=== PATIENT | female | born 1995 | race Caucasian/White ===

== ENCOUNTER 2017-03-28 21:11 | Emergency (ER) | payer OTHER ==
[2017-03-28 21:27] VITALS: BP 132/82; PULSE 86; RESP 18; TEMP 98.7
[2017-03-28] MEDS ORDERED: IBUPROFEN 800 MG TAB PO STA (21:31)
--- NOTE | 2017-03-28 21:45 | ED ---
Lower Extremity Injury HPI - General Chief Complaint: Extremity Injury, Lower Stated Complaint: foot injury Time Seen by Provider: 03/28/17 21:26 Source: patient Mode of arrival: wheelchair Limitations: no limitations - History of Present Illness Initial Comments: Patient is a 21-year-old female presenting to the emergency department with complaints of right ankle pain. Onset of injury approximately one hour prior to her arrival. Patient states she was climbing after her daughter up on a bouncy castle when she hyperextended her right foot and heard a snap. Patient states she was unable to ambulate at the scene of injury and is unable to ambulate in the emergency department. Patient is currently describing pain as sharp, rated 8 out of 10, exacerbated with movement, relieved with rest. Patient denies previous injury, trauma, or surgery to right lower extremity. No treatment prior to arrival. - Related Data Home Medications Medication Instructions Recorded Confirmed No Known Home Medications [No 03/28/17 03/28/17 Known Home Medications] Allergies Allergy/AdvReac Type Severity Reaction Status Date / Time No Known Allergies Allergy Verified 03/28/17 22:01 Review of Systems ROS Statement: Those systems with pertinent positive or pertinent negative responses have been documented in the HPI. ROS Other: All systems not noted in ROS Statement are negative. Past Medical History Past Medical History: No Reported History Additional Past Medical History / Comment(s): (L) ankle fx History of Any Multi-Drug Resistant Organisms: None Reported Past Surgical History: No Surgical Hx Reported Additional Past Surgical History / Comment(s): (L) ankle Past Psychological History: No Psychological Hx Reported Smoking Status: Never smoker Past Alcohol Use History: None Reported Past Drug Use History: None Reported General Exam Limitations: no limitations Head exam: Present: atraumatic, normocephalic, normal inspection Eye exam: Present: normal appearance ENT exam: Present: normal exam, mucous membranes moist, normal external ear exam Neck exam: Present: normal inspection, full ROM. Absent: tenderness, meningismus, lymphadenopathy Respiratory exam: Present: normal lung sounds bilaterally. Absent: respiratory distress, wheezes, rales, rhonchi Cardiovascular Exam: Present: regular rate, normal rhythm, normal heart sounds, systolic murmur GI/Abdominal exam: Present: soft, normal bowel sounds. Absent: tenderness Right Upper Leg exam: Present: normal inspection, full ROM. Absent: tenderness, swelling Knee exam: Present: normal inspection, full ROM. Absent: tenderness, swelling Lower Leg exam: Present: tenderness (Tenderness inferior to right knee medial side.). Absent: swelling Ankle exam: Present: tenderness (Tenderness and swelling to lateral malleolus.) , swelling. Absent: full ROM (Secondary to pain) Foot/Toe exam: Present: normal inspection. Absent: full ROM (Decreased range of motion to third, fourth, and fifth phalanges of the right foot.), tenderness , swelling Neurovascular tendon exam: Present: motor deficit (Decreased range of motion to third, fourth, and fifth phalanges of the right foot.). Absent: no vascular compromise, pulse deficit, sensory deficit, extremity cold to touch, abnormal 2- point discrimination, decreased fine/light touch, foot drop, significant pain with passive ROM of distal joint Gait: not tested/not observed Back exam: Present: normal inspection Neurological exam: Present: alert, oriented X3, other (No focal deficits noted.) Psychiatric exam: Present: normal affect, normal mood Skin exam: Present: warm, dry, intact, normal color Course Vital Signs 03/28/17 21:24 Temperature 98.7 F Pulse Rate 86 Respiratory 18 Rate Blood Pressure 132/82 O2 Sat by Pulse 99 Oximetry Medical Decision Making - Medical Decision Making Left ankle sprain. X-ray negative for left ankle fracture or dislocation, no tibia or fibula fracture or dislocation. Right ankle Magno wrapped. Patient instructed to follow-up with orthopedic service with persistent pain. Patient instructed to return to the emergency department with any new or worsening symptoms. Patient agrees with treatment plan. Discharge instructions and return parameters reviewed. - Radiology Data Radiology results: report reviewed X-ray tibia and fibula: Knee joint and ankle joint appear intact. No evidence of fracture or dislocation. Right ankle x-ray: Soft tissue mild swelling over the lateral malleolus. No fracture or dislocation. Joint spaces are normal. Disposition Clinical Impression: Sprain of ankle, right Disposition: HOME SELF-CARE Condition: Good Instructions: Ankle Sprain (ED) Additional Instructions: Avoid activity that causes pain Ice 20 minutes 4 times a day usually for 2-3 days Magno wrap to provide support and limit swelling Keep elevated as much as possible 24-48 hours. Continue Motrin 800 mg 3 times a day for 24-48 hours. Return to the emergency department with symptoms of increased swelling, pain, numbness, tingling, or foot feeling cold to touch. Follow-up with orthopedic service if ankle pain persist. Referrals: None,Stated [Primary Care Provider] - 1-2 days Thomas Mota MD [Medical Doctor] - 1-2 days Time of Disposition: 22:05
--- NOTE | 2017-03-28 21:56 | XR ---
EXAMINATION TYPE: XR ankle complete RT DATE OF EXAM: 03/28/2017 COMPARISON: NONE HISTORY: Pain and injury TECHNIQUE: 3 views FINDINGS: There is soft tissue mild swelling over the lateral malleolus. I see no fracture nor disloc ation. Joint spaces are normal. IMPRESSION: Mild soft tissue swelling. No fracture.
--- NOTE | 2017-03-28 21:56 | XR ---
EXAMINATION TYPE: XR tibia fibula RT DATE OF EXAM: 03/28/2017 COMPARISON: NONE HISTORY: Injury and pain TECHNIQUE: 3 views FINDINGS: Knee joint and ankle joint appear intact. I see no fracture nor dislocation. IMPRESSION: Negative right tibia and fibula exam.
== END 2017-03-28 22:15 | disposition home or self-care (01) ==
LOC: EC 21:11
DX: S93.401A Sprain of unspecified ligament of right ankle, initial encounter (principal); X50.1XXA Overexertion from prolonged static or awkward postures, initial encounter; Y93.89 Activity, other specified
CPT/HCPCS: 99283